=== PATIENT | female | born 2000 | race Caucasian/White ===

== ENCOUNTER 2020-05-17 14:23 | Emergency (ER) | payer OTHER ==
[~2020-05-17] VITALS: Ht 170.2 cm; Wt 62.6 kg
--- NOTE | 2020-05-17 14:28 | NUR ---
ED Nurse Note: Called patient. Patient not in waiting room.
--- NOTE | 2020-05-17 14:45 | NUR ---
ED Nurse Note: Patient presents to ER due to episodes of SOB/palpitation ~ 20min x 1 month and the episode lasted longer over one day since yesterday. denies any CP at this time. Patient admitted drinking alcohol daily ,denies use any drug. Patient awake, alert, oriented x 4. Appears to be anxious. Provided reassurance. Reports no N/V, cough, fever or chills. Patient placed in tent. No beds available inside the ER.
[2020-05-17 15:15] VITALS: BP 135/96
--- NOTE | 2020-05-17 16:58 | Diagnostic Imaging Report ---
Indication: Reason For Exam: SOB Technique: Single AP view of the chest. Comparison: None. Findings: The cardiomediastinal silhouette is within normal limits. Increased density of the bases likely represents overlying soft tissue shadows. There is no focal consolidation, pneumothorax or pleural effusion. Osseous structures demonstrate no acute abnormality. IMPRESSION: No radiographic evidence of acute cardiopulmonary process.
--- NOTE | 2020-05-17 16:58 | NUR ---
ED Nurse Note: Pt has been placed in RME. Resting comfortably. Labs sent. Vitals stable as documented on RA.
[2020-05-17 17:45] LABS: ANION GAP 10 mmol/L (5-15); BASOPHILS % (AUTO) 0.6 % (0.0-2.0); BLOOD UREA NITROGEN 7 mg/dL (7-18); CARBON DIOXIDE 25 MMOL/L (21-32); CHLORIDE 102 MMOL/L (98-107); CREATININE 0.8 MG/DL (0.55-1.30); EOSINOPHILS % (AUTO) 0.6 % (0.0-3.0); HEMATOCRIT 43.5 % (37.0-47.0); HEMOGLOBIN 14.5 G/DL (12.0-16.0); LYMPHOCYTES % (AUTO) 15.7 % (20.0-45.0); MEAN CORPUSCULAR VOLUME 90 FL (80-99); NEUTROPHILS % (AUTO) 75.1 % (45.0-75.0); PLATELET COUNT 313 K/UL (150-450); POTASSIUM 3.9 MMOL/L (3.5-5.1); RED BLOOD COUNT 4.81 M/UL (4.20-5.40); RED CELL DISTRIBUTION WIDTH 13.3 % (11.6-14.8); SODIUM 137 MMOL/L (136-145)
[2020-05-17 17:49] LABS: ALANINE AMINOTRANSFERASE 24 U/L (12-78); ALBUMIN/GLOBULIN RATIO 1.1 (1.0-2.7); ALKALINE PHOSPHATASE 75 U/L (46-116); ASPARTATE AMINO TRANSFERASE 27 U/L (15-37); BILIRUBIN,TOTAL 0.8 MG/DL (0.2-1.0)
[2020-05-17 17:51] LABS: APPEARANCE,URINE SLIGHTLY CLOUDY; BILIRUBIN, URINE 3+ (NEGATIVE); COLOR,URINE ORANGE; GLUCOSE, URINE (UA) NEGATIVE (NEGATIVE); KETONES,URINE NEGATIVE (NEGATIVE); LEUKOCYTE ESTERASE ,URINE NEGATIVE (NEGATIVE); NITRITE,URINE POSITIVE (NEGATIVE); PH,URINE 5 (4.5-8.0); PROTEIN,URINE 3+ (NEGATIVE); UROBILINOGEN,URINE 8 MG/DL (0.0-1.0)
--- NOTE | 2020-05-17 17:57 | Emergency Room Report ---
History of Present Illness General Chief Complaint: Dyspnea/Respdistress Source: Patient Present Illness HPI 19-year-old female with history of alcohol abuse and cocaine abuse here complaining of 1 month of chest tightness and palpitation worsening x1 day. Reports that 1 month ago went to a different hospital Had a full work-up and was told that he needs to stop using cocaine. Has had has not used cocaine in 1 month. Reports that he drinks 6 glasses of alcoholic beverages 3 times a week. Reports that last alcoholic beverage was 2 days ago. Denies any chest pain or palpitation at this time however reports that yesterday 10. Denies shortness of breath. Denies taking dizziness. Denies abdominal pain, nausea or vomiting. Appears to be tachycardic upon arrival. Denies . Denies cough and congestion, loss of taste and smell. Allergies: Coded Allergies: AMOXICILLIN (Verified Allergy, Unknown, 05/17/20) COVID-19 Screening Contact w/high risk pt: No Experienced COVID-19 symptoms?: Yes COVID-19 Testing performed ENGINE MONITOR: No Patient History Past Medical History: see triage record Past Surgical History: none Pertinent Family History: none Social History: Reports: alcohol use Last Menstrual Period: 3 weeks ago Now: No Reviewed Nursing Documentation: PMH: Agreed; PSxH: Agreed Nursing Documentation-PMH Past Medical History: No Stated History Review of Systems All Other Systems: negative except mentioned in HPI Physical Exam Vital Signs Date Time Temp Pulse Resp B/P (MAP) Pulse Ox O2 Delivery O2 Flow Rate FiO2 05/17/20 14:45 99.1 119 22 136/106 (116) 94 Room Air Sp02 EP Interpretation: reviewed, abnormal - Tachycardic General Appearance: no apparent distress, alert, GCS 15, non-toxic Head: normocephalic, atraumatic Eyes: bilateral eye normal inspection, bilateral eye PERRL ENT: hearing grossly normal, no angioedema, normal voice Neck: full range of motion, supple/symm/no masses Respiratory: no respiratory distress, no retraction, no accessory muscle use, speaking full sentences Cardiovascular #1: regular rate, rhythm, no edema Gastrointestinal: non tender, soft Musculoskeletal: back normal, gait/station normal Neurologic: alert, motor strength/tone normal, oriented x3, sensory intact, responsive, speech normal Psychiatric: judgement/insight normal, memory normal, mood/affect normal, no suicidal/homicidal ideation, anxious Skin: no rash Lymphatic: no adenopathy Medical Decision Making PA Attestation All my diagnosis and treatment plans were reviewed ad discussed with my supervising physician Dr. Menchaca Diagnostic Impression: Primary Impression: PCP abuse Additional Impression: Palpitation ER Course 19-year-old female with history of alcohol abuse and cocaine abuse here complaining of 1 month of chest tightness and palpitation worsening x1 day. Reports that 1 month ago went to a different hospital Had a full work-up and was told that he needs to stop using cocaine. Has had has not used cocaine in 1 month. Reports that he drinks 6 glasses of alcoholic beverages 3 times a week. Reports that last alcoholic beverage was 2 days ago. Denies any chest pain or palpitation at this time however reports that yesterday 10. Denies shortness of breath. Denies taking dizziness. Denies abdominal pain, nausea or vomiting. Appears to be tachycardic upon arrival. Denies . Denies cough and congestion, loss of taste and smell. Ddx considered but are not limited to: [place], Angina, COPD, GERD, Vital signs: are WNL, pt. is afebrile H&PE are most consistent with nonspecific chest pain ORDERS: EKG, Chest XR, cardiac labs ED INTERVENTIONS: None required at this time. DISCHARGE: At this time pt. is stable for d/c to home. Will provide printed patient care instructions, and any necessary prescriptions. Care plan and follow up instructions have been discussed with the patient prior to discharge. Patient has a UTI and is currently taking medication for it. Patient is currently on antibiotics for UTI. Advised patient to avoid using any drugs. Follow-up primary care provider, emergency room EKG Diagnostic Results Rate: tachycardiac Rhythm: other - Tachycardic ST Segments: no acute changes Other Impression No acute ST changes ASA given to the pt in ED: No Chest X-Ray Diagnostic Results Chest X-Ray Diagnostic Results : Chest X-Ray Ordered: Yes # of Views/Limited/Complete: 1 View Indication: Chest Pain EP Interpretation: Yes ABBY Xray: Interpretation reviewed, by supervising MD, and agrees with findings. Interpretation: no consolidation, no effusion, no pneumothorax Impression: No acute disease Electronically Signed by: Mitchell Madison PA-C Last Vital Signs Date Time Temp Pulse Resp B/P (MAP) Pulse Ox O2 Delivery O2 Flow Rate FiO2 12//20 14:45 118 22 Room Air 05/17/20 14:45 99.1 136/106 (602) 94 Disposition: HOME, SELF-CARE Condition: Stable Referrals: NON PHYSICIAN (PCP) Patient Instructions: Shortness of Breath Additional Instructions: Patient has a UTI and is currently taking medication for it. Patient is currently on antibiotics for UTI. Advised patient to avoid using any drugs. Follow-up primary care provider, emergency room Mitchell Manuel May 17, 2020 17:57
--- NOTE | 2020-05-17 18:29 | NUR ---
ER DISCHARGE NOTE: Patient is cleared to be discharged per ERMD, pt is aox4, on room air, with stable vital signs. pt was given dc instructions, pt was able to verbalize understanding, she stated that it ws a surprised about her drug screen results stating that she didnt take drugs on purpose, pt states that she lives with a friend unrelated to this friend group and states that she feels safe with her house mate, pt id band and iv site removed without complications. pt is able to ambulate with steady gait. pt took all belongings.
[2020-05-17 18:30] VITALS: BP 132/90
== END 2020-05-17 18:30 | disposition home or self-care (01) ==
LOC: EMR 15:00
DX: F16.10 Hallucinogen abuse, uncomplicated (principal); R00.2 Palpitations; Z88.1 Allergy status to other antibiotic agents
CPT/HCPCS: 36415; 71045; 80053; 80307; 81003; 81025; 84484; 85025; 87086; 93005; 99284